=== PATIENT | male | born 1980 | race Caucasian/White ===

== ENCOUNTER 2019-05-16 20:39 | Emergency (ER) | payer OTHER ==
[~2019-05-16] VITALS: Ht 175.3 cm; Wt 80.0 kg
[2019-05-16 21:37] VITALS: Ht 175.3 cm; Wt 80.0 kg
[2019-05-16] MEDS ORDERED: CLEOCIN HCL300 MG PO (22:01)
[2019-05-16 22:11] VITALS: BP 118/78
== END 2019-05-16 22:14 | disposition home or self-care (01) ==
LOC: D.ER 20:39
DX: L01.00 Impetigo, unspecified (principal); Z22.322 Carrier or suspected carrier of Methicillin resistant Staphylococcus aureus